=== PATIENT | male | born 1955 | race Hispanic/Latino ===

== ENCOUNTER → 2020-04-03 | Outpatient (CLI) | payer OTHER ==
[~2020-04-03] MED LIST: FURO20TA4 PO; HUMULOG SQ; INSLAN SQ; LEVO125T95 PO; LEVO150 PO; LEVO150T6 PO; METF-444 PO; ROSU20TA23 PO; SYNTHR; SYNTHROID PO; SYNTHROID SQ; TAMS-1 PO
== END | disposition home or self-care (01) ==
LOC: SHCH 12:53
PROVIDERS: ATTEND Internal Medicine Cardiovascular Disease
DX: E03.9 Hypothyroidism, unspecified (principal); E78.5 Hyperlipidemia, unspecified; I20.9 Angina pectoris, unspecified; I10 Essential (primary) hypertension
CPT/HCPCS: 93306; 93356

== ENCOUNTER → 2020-04-11 | Outpatient (CLI) | payer OTHER | END | disposition home or self-care (01) | LOC: RAH 08:47 | PROVIDERS: ATTEND Internal Medicine Cardiovascular Disease | DX: Z13.6 Encounter for screening for cardiovascular disorders (principal) | CPT/HCPCS: 75571 ==

== ENCOUNTER → 2020-04-24 | Outpatient (CLI) | payer OTHER ==
[~2020-04-24] MED LIST changes: -FURO20TA4 PO; -HUMULOG SQ; -INSLAN SQ; -LEVO125T95 PO; -LEVO150 PO; -LEVO150T6 PO; -METF-444 PO; +REGADENOSON 0.4 MG/5 ML PF SYG IVP SCH; -ROSU20TA23 PO; -SYNTHR; -SYNTHROID PO; -SYNTHROID SQ; -TAMS-1 PO
== END | disposition home or self-care (01) ==
LOC: SHCH 08:24
PROVIDERS: ATTEND Internal Medicine Cardiovascular Disease
DX: I25.119 Atherosclerotic heart disease of native coronary artery with unspecified angina pectoris (principal)
CPT/HCPCS: 78452; 93017; 96374; A9500 ×2; J2785

== ENCOUNTER 2020-05-11 05:53 | Day surgery (SDC) | payer OTHER ==
[2020-05-09 10:52] LABS: APPEARANCE,URINE Clear (CLEAR); BILIRUBIN,URINE Negative (NEGATIVE); COLOR,URINE Yellow (YELLOW); GLUCOSE, URINE (UA) >=1000 mg/dL (NEGATIVE); KETONES,URINE Negative (NEGATIVE); LEUKOCYTE ESTERASE ,URINE Negative (NEGATIVE); NITRATE,URINE Negative (NEGATIVE); OCCULT BLOOD,URINE Negative (NEGATIVE); PROTEIN,URINE Negative (NEGATIVE)
[2020-05-09 10:58] LABS: BASOPHILS % (AUTO) 0.7 % (0.0-5.0); EOSINOPHILS % (AUTO) 7.1 % (0.0-8.0); HEMATOCRIT 41.4 % (42-54); LYMPHOCYTES % (AUTO) 19.4 % (21.0-51.0); MEAN CORPUSCULAR HGB CONC 32.1 g/dL (32.0-36.0); MEAN CORPUSCULAR VOLUME 90.2 fL (79-99); MONOCYTES % (AUTO) 8.5 % (3.0-13.0); NEUTROPHILS % (AUTO) 63.8 % (40.0-77.0); PLATELET COUNT (AUTO) 279 K/uL (130-400); RED BLOOD CELL COUNT(AUTO) 4.59 MIL/uL (4.50-6.20); RED CELL DISTRIBUTION WIDTH 13.7 % (11.0-15.5); WHITE BLOOD COUNT (AUTO) 8.7 K/uL (4.8-10.8)
[2020-05-09 10:59] LABS: POTASSIUM 4.8 mmol/L (3.5-5.1)
[2020-05-09 11:11] LABS: BACTERIA,URINE None Seen /HPF (None Seen); HYALINE CASTS, URINE 0-1 /LPF (0-1 /LPF); RBC,URINE 0-1 /HPF (0-1); SQUAMOUS EPITHELIAL CELL,UR 0-2 /HPF (0-2); WBC,URINE 0-1 /HPF (0-1)
[2020-05-09 11:25] LABS: INR 0.95 (0.85-1.15); PARTIAL THROMBOPLASTIN TIME 27.5 SEC (26.3-35.5); PROTHROMBIN TIME 10.3 SEC (9.6-11.6)
[2020-05-10 15:10] VITALS: BP 143/70
[~2020-05-11] VITALS: Ht 170.2 cm; Wt 98.0 kg
[2020-05-11] VITALS (14 sets, daily range): BP systolic 107–141; BP diastolic 62–78
[~2020-05-11 05:53] MED LIST changes: +FURO20TA4 PO; +HUMULOG SQ; +INSLAN SQ; +METF-444 PO; -REGADENOSON 0.4 MG/5 ML PF SYG IVP SCH; +ROSU20TA23 PO; +SYNTHR; +SYNTHROID SQ; +TAMS-1 PO
[2020-05-11] MEDS ORDERED: SODIUM CHLORIDE 0.9% 1000ML 1,000 ML IV ONE (06:09)
[2020-05-11] MEDS ORDERED: LEVO150 PO (06:59)
[2020-05-11] MEDS ORDERED: SYNTHROID PO (07:04)
[2020-05-11] MEDS ORDERED: IOHEXOL-350 75 ML VIAL IV ONE ×2 (07:14→08:29)
[2020-05-11] MEDS ORDERED: HEPARIN SODIUM 1000UNIT/ML 10ML VIAL ONE (07:14)
[2020-05-11] MEDS ORDERED: LIDOCAINE HCL 2% 20ML ONE (07:14)
--- NOTE | 2020-05-11 07:20 | NUR ---
PROCEDURE PT TAKEN TO YARD ATTENDANT FOR SCHEDULED PROCEDURE. NO DISTRESS NOTED. SPOUSE AT BEDSIDE
[2020-05-11] MEDS ORDERED: LEVO125T95 PO (07:29)
[2020-05-11] MEDS ORDERED: NITROGLYCERIN 4.1 GM SPRAY TL ONE (07:57)
[2020-05-11] MEDS ORDERED: GLUCAGON 1MG KIT 1 MG ML IM PRN (08:30)
[2020-05-11] MEDS ORDERED: DEXTROSE 50%-WATER 50 ML DISP.SYRIN IV PRN (08:30)
[2020-05-11] MEDS ORDERED: SODIUM CHLORIDE 0.9% 10 ML VIAL IVP SCH (08:30)
--- NOTE | 2020-05-11 08:50 | NUR ---
post cath received pt and report from alex jeronimo rn. pt in supine position in no distress. pt aware not to bend or move rt leg and to apply pressure to rt groin with cough or sneeze. pt connected to monitor worker. will continue to monitor pt.
[2020-05-11] MEDS: INSULIN HUMULIN R 100 UNIT/ML 3ML SQ SCH ×2 (10:22→16:48)
--- NOTE | 2020-05-11 16:00 | NUR ---
REPORT REPORT GIVEN TO JENNIFER BROWNING RN FOR CONTINUATION OF CARE. PT IN NO DISTRESS WAITING FOR HEART SURGEON
--- NOTE | 2020-05-11 17:27 | NUR ---
PT SEEN BY DR WALLACE AT BEDSIDE - PT TO BE DISCHARGED HOME AND TO FOLLOW UP WITH DR WALLACE TO ARRANGE OUTPATIENT SURGERY FOR CABG
--- NOTE | 2020-05-11 18:15 | NUR ---
DISCHARGED HOME WITH . PRINTED AND VERBAL DISCHARGE INSTRUCTIONS GIVEN. BOTH VERBALIZE UNDERSTANDING. NO CHEST PAIN OR SOB. NO HEMATOMA TO RT GROIN-DSTAT DRESSING IN PLACE CLEAN DRY AND INTACT. TO CAR BVIS WHEELCHAIR. NO ACUTE DISTRESS. PT WILL FOLLOW UP WITH DR MCPHERSON OFFICE IN AM FOR APPT OFFICE IS CLOSED NOW. DR WALLACE TO SEE PT ON MAY 23 AT 1000 AM
== END 2020-05-11 18:15 | disposition home or self-care (01) ==
LOC: DAH 05:53
PROVIDERS: ATTEND Internal Medicine Cardiovascular Disease
DX: I25.119 Atherosclerotic heart disease of native coronary artery with unspecified angina pectoris (principal); I10 Essential (primary) hypertension; E78.00 Pure hypercholesterolemia, unspecified; Z79.84 Long term (current) use of oral hypoglycemic drugs; Z98.890 Other specified postprocedural states; Z79.01 Long term (current) use of anticoagulants; Z90.49 Acquired absence of other specified parts of digestive tract
CPT/HCPCS: 36415; 71045; 80048; 81001; 82948 ×3; 85025; 85610; 85730; 93005; 93458; A4215; A4216; A4221; A4222; A4223 ×3; A4606; A4663; C1887; C1894; J1644; J1815 ×2; J3490; J7030; Q9967 ×2

== ENCOUNTER 2020-05-29 17:44 | Emergency (ER) | payer OTHER ==
[~2020-05-29 17:44] MED LIST changes: +LEVO125T95 PO; -SYNTHR; -SYNTHROID SQ
== END 2020-05-29 18:10 | disposition left against medical advice (07) ==
LOC: EDH 17:44
DX: R51.9 Headache, unspecified (principal); I10 Essential (primary) hypertension; E11.9 Type 2 diabetes mellitus without complications; E78.00 Pure hypercholesterolemia, unspecified; Z53.21 Procedure and treatment not carried out due to patient leaving prior to being seen by health care provider

== ENCOUNTER 2020-06-02 11:00 | Inpatient (IN) | payer OTHER ==
[~2020-06-02] VITALS: Ht 172.7 cm; Wt 94.4 kg
[2020-06-02 09:52] LABS: BASOPHILS % (AUTO) 0.6 % (0.0-5.0); EOSINOPHILS % (AUTO) 3.3 % (0.0-8.0); HEMATOCRIT 43.7 % (42-54); LYMPHOCYTES % (AUTO) 16.3 % (21.0-51.0); MEAN CORPUSCULAR HEMOGLOBIN 29.2 pg (27.0-33.0); MEAN CORPUSCULAR HGB CONC 32.5 g/dL (32.0-36.0); MEAN CORPUSCULAR VOLUME 89.7 fL (79-99); MONOCYTES % (AUTO) 6.3 % (3.0-13.0); NEUTROPHILS % (AUTO) 73.1 % (40.0-77.0); PLATELET COUNT (AUTO) 313 K/uL (130-400); RED BLOOD CELL COUNT(AUTO) 4.87 MIL/uL (4.50-6.20); RED CELL DISTRIBUTION WIDTH 13.4 % (11.0-15.5); WHITE BLOOD COUNT (AUTO) 9.7 K/uL (4.8-10.8)
[2020-06-02 10:02] LABS: INR 1.01 (0.85-1.15); PARTIAL THROMBOPLASTIN TIME 27.6 SEC (26.3-35.5); PROTHROMBIN TIME 10.9 SEC (9.6-11.6)
[2020-06-02 10:11] LABS: HEMOGLOBIN A1C 8.7 % (4.0-6.0)
[2020-06-02 10:26] LABS: B-TYPE NATRIURETIC PEPTIDE 6 pg/mL (0-100)
[2020-06-02 10:36] LABS: BILIRUBIN,TOTAL 0.6 mg/dL (0.2-1.0); POTASSIUM 4.6 mmol/L (3.5-5.1); TOTAL PROTEIN, SERUM 8.3 g/dL (6.0-8.3)
[2020-06-05] MEDS ORDERED: ISOS30TA6 PO (09:56)
[2020-06-05] MEDS ORDERED: AEC81 PO (09:57)
[2020-06-05 09:59] VITALS: BP 135/76
[2020-06-06] VITALS (16 sets, daily range): BP systolic 85–153; BP diastolic 39–83
[2020-06-06] MEDS ORDERED: CEFUROXIME SODIUM 1.5 GM VIAL IVP SCH (06:00)
[2020-06-06] MEDS ORDERED: AMINOCAPROIC ACID 15,000 MG in SODIUM CHLORIDE 0.9% 500ML 420 ML IV PRN (06:30)
[2020-06-06] MEDS ORDERED: EPINEPHRINE 10 MG in SODIUM CHLORIDE 0.9% 240 ML IV PRN (06:30)
[2020-06-06] MEDS ORDERED: CEFAZOLIN SODIUM 1 GM VIAL ONE ×2 (06:47→07:03)
[2020-06-06] MEDS ORDERED: SODIUM CHLORIDE 0.9% 1000ML 1,000 ML IV ONE (06:48)
[2020-06-06] MEDS ORDERED: PAPAVERINE HCL 30 MG/ML 2ML VIAL ONE (07:04)
[2020-06-06] MEDS ORDERED: NITROGLYCERIN 50 MG/D5% WATER 1 BOT ONE (07:23)
[2020-06-06] MEDS ORDERED: ESMOLOL HCL 10 MG/ML 10 ML VIAL ONE (10:04)
[2020-06-06] MEDS ORDERED: PROTAMINE SULFATE 10 MG/ML 25ML VIAL IV ONE (10:04)
[2020-06-06] MEDS ORDERED: NOREPINEPHRINE BITARTRATE 1 MG/1 ML ML IV ONE (10:05)
[2020-06-06] MEDS ORDERED: LIDOCAINE PF 2% 5ML ABBOJECT ONE (10:05)
[2020-06-06] MEDS ORDERED: HEPARIN SODIUM 1000UNIT/ML 10ML VIAL ONE ×2 (10:05→11:09)
[2020-06-06] MEDS ORDERED: PROPOFOL 10 MG/ML 20ML VIAL IV ONE (10:05)
[2020-06-06] MEDS ORDERED: EPINEPHRINE 1 MG/ML AMPULE ONE (10:05)
[2020-06-06] MEDS ORDERED: FENTANYL CITRATE PF 50 MCG/1 ML 20ML VIAL IJ ONE (10:05)
[2020-06-06] MEDS ORDERED: AMINOCAPROIC ACID 250 MG/ML 20 ML VIAL ONE (10:05)
[2020-06-06] MEDS ORDERED: SODIUM BICARB 50MEQ 50ML VIAL 150 ML ONE (10:05)
[2020-06-06] MEDS ORDERED: ROCURONIUM 10MG/1ML SYR 10 MG/ML ML ONE (10:06)
[2020-06-06] MEDS ORDERED: MIDAZOLAM HCL 1 MG/ML 2ML VIAL ONE (10:06)
[2020-06-06] MEDS ORDERED: ETOMIDATE 2 MG/ML 10 ML VIAL ONE (10:07)
[2020-06-06] MEDS ORDERED: CEFAZOLIN SODIUM 1 GM VIAL IVP ONE (10:22)
[2020-06-06] MEDS ORDERED: CEFAZOLIN SODIUM 1 GM VIAL IRRIG ONE (10:40)
[2020-06-06 11:08] LABS: ABG BASE EXCESS -2.6 mmol/L (-2.0-3.0); ABG HCO3 23.8 mmol/L (21.0-28.0); ABG OXYGEN SATURATION 98.1 % (95.0-99.0); ABG PCO2 48 mmHg (35-48)
[2020-06-06 12:18] LABS: ABG BASE EXCESS -3.2 mmol/L (-2.0-3.0); ABG HCO3 22.7 mmol/L (21.0-28.0); ABG OXYGEN SATURATION 87.1 % (95.0-99.0); ABG PCO2 44 mmHg (35-48)
[2020-06-06 13:16] LABS: ABG BASE EXCESS -3.3 mmol/L (-2.0-3.0); ABG OXYGEN SATURATION 97.8 % (95.0-99.0); ABG PCO2 30 mmHg (35-48)
[2020-06-06] MEDS ORDERED: MORPHINE SULFATE 2 MG/ML 1ML SYG IV PRN ×2 (13:30→14:00)
[2020-06-06] MEDS ORDERED: SODIUM CHLORIDE 0.9% 10 ML VIAL IVP PRN (13:30)
[2020-06-06] MEDS ORDERED: ONDANSETRON HCL 4 MG/2 ML VIAL IV PRN (13:30)
[2020-06-06] MEDS ORDERED: SODIUM CHLORIDE 0.9% 250 ML IV PRN (13:30)
[2020-06-06] MEDS ORDERED: ACETAMINOPHEN 650 MG SUPPOSITORY RC PRN (13:30)
[2020-06-06] MEDS ORDERED: GLUCAGON 1MG KIT 1 MG ML IM PRN (13:30)
[2020-06-06] MEDS ORDERED: SODIUM CHLORIDE 0.9% 1000ML 1,000 ML IV SCH (13:30)
[2020-06-06] MEDS ORDERED: POTASSIUM PHOS 15 mMOL+NS250ML 250 ML IV PRN (13:30)
[2020-06-06] MEDS ORDERED: PROPOFOL 1000 MG/100 ML 100 ML IV PRN (13:30)
[2020-06-06] MEDS ORDERED: AMINOCAPROIC ACID 15,000 MG in SODIUM CHLORIDE 0.9% 250 ML IV SCH (13:30)
[2020-06-06] MEDS ORDERED: ALBUMIN (HUMAN) 5% 250 ML IV PRN (13:30)
[2020-06-06] MEDS ORDERED: EPINEPHRINE 2 MG in DEXTROSE 5%-WATER 250 ML IV PRN (13:30)
[2020-06-06] MEDS ORDERED: DEXTROSE 50%-WATER 50 ML DISP.SYRIN IV PRN (13:30)
[2020-06-06] MEDS ORDERED: NOREPINEPHRINE 4MG/NS 250ML 250 ML IV PRN (13:30)
[2020-06-06] MEDS ORDERED: NITROGLYCERIN 50 MG/D5% WATER 250 BOT IV SCH (13:30)
[2020-06-06] MEDS ORDERED: ALBUMIN (HUMAN) 5% 250 ML IV ONE ×2 (13:44→20:45)
[2020-06-06 14:05] LABS: ABG BASE EXCESS -2.4 mmol/L (-2.0-3.0); ABG HCO3 22.9 mmol/L (21.0-28.0); ABG OXYGEN SATURATION 96.9 % (95.0-99.0); ABG PCO2 41 mmHg (35-48)
[2020-06-06] MEDS: INSULIN REGULAR, HUMAN 3ML 100 UNIT in SODIUM CHLORIDE 0.9% 99 ML IV SCH ×2 (14:14)
[2020-06-06] MEDS: POTASSIUM CHLORIDE 20MEQ/100ML 100 ML IV PRN ×4 (14:19→20:50)
[2020-06-06] MEDS: SODIUM BICARB 50MEQ 50ML VIAL IV PRN ×2 (14:19→15:21)
[2020-06-06 14:21] LABS: HEMATOCRIT 28.1 % (42-54); MEAN CORPUSCULAR HEMOGLOBIN 29.7 pg (27.0-33.0); MEAN CORPUSCULAR HGB CONC 33.1 g/dL (32.0-36.0); MEAN CORPUSCULAR VOLUME 89.8 fL (79-99); RED BLOOD CELL COUNT(AUTO) 3.13 MIL/uL (4.50-6.20); RED CELL DISTRIBUTION WIDTH 13.5 % (11.0-15.5); WHITE BLOOD COUNT (AUTO) 24.5 K/uL (4.8-10.8)
[2020-06-06 14:34] LABS: CREATININE 0.8 mg/dL (0.5-1.5); PHOSPHORUS 3.6 mg/dL (2.5-4.9); POTASSIUM 3.1 mmol/L (3.5-5.1)
[2020-06-06 14:46] LABS: INR 1.18 (0.85-1.15); PARTIAL THROMBOPLASTIN TIME 24.7 SEC (26.3-35.5); PROTHROMBIN TIME 12.7 SEC (9.6-11.6)
[2020-06-06] MEDS: MAGNESIUM 2GM PREMIX 50ML 50 ML IV PRN ×2 (14:46→15:35)
[2020-06-06] MEDS: CALCIUM GLUCONATE 1 GM in SODIUM CHLORIDE 0.9% 50 ML IV PRN ×4 (14:57→23:57)
[2020-06-06 15:17] LABS: ABG BASE EXCESS -3.3 mmol/L (-2.0-3.0); ABG HCO3 22.2 mmol/L (21.0-28.0); ABG OXYGEN SATURATION 95.8 % (95.0-99.0); ABG PCO2 42 mmHg (35-48)
--- NOTE | 2020-06-06 15:31 | NUR ---
[facility] NOTIFIED OF PT ARRIVAL TO UNIT DR. MCCRAY'S OFFICE CALLED AND NOTIFIED OF CONSULT FOR LEFT GREAT TOE ULCER.
--- NOTE | 2020-06-06 16:00 | NUR ---
Liv LI, FREELANCE PATTERNMAKER AT BEDSIDE TO SEE PT. PLAN OF CARE DISCUSSED. PT AWAKE AND FOLLOWING COMMANDS, NO NEURO DEFICIT NOTED. WEANING FROM VENTILATOR PER CV PROTOCOL.
[2020-06-06 16:26] LABS: ABG BASE EXCESS -0.7 mmol/L (-2.0-3.0); ABG HCO3 25.3 mmol/L (21.0-28.0); ABG OXYGEN SATURATION 95.4 % (95.0-99.0); ABG PCO2 48 mmHg (35-48)
[2020-06-06 17:18] LABS: ABG BASE EXCESS 0.5 mmol/L (-2.0-3.0); ABG HCO3 25.9 mmol/L (21.0-28.0); ABG OXYGEN SATURATION 95.4 % (95.0-99.0); ABG PCO2 46 mmHg (35-48)
--- NOTE | 2020-06-06 17:25 | NUR ---
PT FULLY AWAKE, WITH STRONG BILATERAL HAND AGRICULTURAL AIRCRAFT PILOT AND ABLE TO SUSTAIN HEADLIFT. TOLERATING WEANING FROM VENT. WEANING PARAMETERS AND ABG COMPLETED ORDERED. PT WITH NIP -33. PT EXTUBATED PER CV PROTOCOL. PLACED ON NC 5 L. TOLERATED WELL. INSTRUCTED ON DEEP BREATHING AND COUGHING WELL IN USE OF HEART PILLOW. NODS UNDERSTANDING. NO RESP DISTRESS NOTED. PT RESTING COMFORTABLY IN BED. CONTINUE TO MONITOR PT.
[2020-06-06] MEDS: CEFAZOLIN SODIUM 1 GM VIAL IV SCH (17:42)
[2020-06-06 18:40] LABS: ABG BASE EXCESS -0.6 mmol/L (-2.0-3.0); ABG OXYGEN SATURATION 97.3 % (95.0-99.0); ABG PCO2 45 mmHg (35-48)
[2020-06-06] MEDS: TRAMADOL HCL 50 MG TABLET PO PRN (19:08)
[2020-06-06 20:46] LABS: ABG BASE EXCESS -0.3 mmol/L (-2.0-3.0); ABG HCO3 25.2 mmol/L (21.0-28.0); ABG OXYGEN SATURATION 95.8 % (95.0-99.0); ABG PCO2 46 mmHg (35-48)
[2020-06-06] MEDS: FAMOTIDINE/PF 20 MG/2 ML VIAL IV SCH (20:50)
[2020-06-06] MEDS: ROSUVASTATIN CALCIUM 20 MG PO SCH (21:00)
[2020-06-06] MEDS ORDERED: NON-FORMULARY MEDICATION 1 EACH (Rosuvastatin Calcium (Crestor) 20 MG) PO SCH (21:00)
[2020-06-06] MEDS: TAMSULOSIN HCL 0.4 MG CAP.ER.24H PO SCH (21:00)
[2020-06-06] MEDS: LEVOTHYROXINE 125 MCG TABLET PO SCH (21:00)
[2020-06-06] MEDS: NOREPINEPHRINE BITARTRATE 8 MG in DEXTROSE 5%-WATER 250 ML IV PRN (22:13)
[2020-06-06 23:38] LABS: POTASSIUM 4.4 mmol/L (3.5-5.1)
[2020-06-07] VITALS (58 sets, daily range): BP systolic 60–163; BP diastolic 28–79
[2020-06-07] MEDS: INSULIN REGULAR, HUMAN 3ML 100 UNIT in SODIUM CHLORIDE 0.9% 99 ML IV SCH ×2 (01:53)
[2020-06-07] MEDS: CEFAZOLIN SODIUM 1 GM VIAL IV SCH ×2 (01:59→10:28)
[2020-06-07] MEDS: TRAMADOL HCL 50 MG TABLET PO PRN ×2 (01:59→13:27)
[2020-06-07 03:35] LABS: HEMATOCRIT 24.5 % (42-54); MEAN CORPUSCULAR HEMOGLOBIN 29.5 pg (27.0-33.0); MEAN CORPUSCULAR HGB CONC 33.1 g/dL (32.0-36.0); MEAN CORPUSCULAR VOLUME 89.1 fL (79-99); RED BLOOD CELL COUNT(AUTO) 2.75 MIL/uL (4.50-6.20); RED CELL DISTRIBUTION WIDTH 13.7 % (11.0-15.5); WHITE BLOOD COUNT (AUTO) 17.6 K/uL (4.8-10.8)
[2020-06-07 03:48] LABS: CREATININE 0.9 mg/dL (0.5-1.5); MAGNESIUM 1.7 mg/dL (1.80-2.40); PHOSPHORUS 4.7 mg/dL (2.5-4.9); POTASSIUM 4.7 mmol/L (3.5-5.1)
[2020-06-07 03:49] LABS: INR 1.07 (0.85-1.15); PARTIAL THROMBOPLASTIN TIME 24.5 SEC (26.3-35.5); PROTHROMBIN TIME 11.5 SEC (9.6-11.6)
[2020-06-07] MEDS: MAGNESIUM 2GM PREMIX 50ML 50 ML IV PRN (04:00)
[2020-06-07 04:41] LABS: ABG BASE EXCESS 0.5 mmol/L (-2.0-3.0); ABG HCO3 26.1 mmol/L (21.0-28.0); ABG OXYGEN SATURATION 96.7 % (95.0-99.0); ABG PCO2 46 mmHg (35-48)
[2020-06-07] MEDS ORDERED: ALBUMIN (HUMAN) 5% 250 ML IV ONE (08:07)
--- NOTE | 2020-06-07 08:45 | NUR ---
DR. GILL ROUNDED ON PATIENT. ORDERED ONE UNIT OF BLOOD.
--- NOTE | 2020-06-07 08:45 | NUR ---
DR. GILL ROUNDED ON PATIENT. ORDERED ONE UNIT OF BLOOD.
[2020-06-07] MEDS: ASPIRIN 325MG EC TAB 325 MG TABLET.DR PO SCH (09:42)
[2020-06-07] MEDS: FAMOTIDINE/PF 20 MG/2 ML VIAL IV SCH ×2 (09:42→23:50)
[2020-06-07] MEDS: FUROSEMIDE 10 MG/ML 2ML VIAL IV SCH ×2 (09:43→23:50)
--- NOTE | 2020-06-07 11:21 | NUR ---
RUTHIE IVNA Spoke with daughter Anjana Zimmerman ([phone]). Ms Yeung statroly patient was independent with ADL's before this admission, and has no home services or DME. Daughter has some concerns about needing assistance with patient's care at home, as patient lives alone with . Ms Yeung lives out of town and will be leaving soon. Tentative discharge plan is for patient to go back home. Ms Yeung feels safe for patient to go home provided her mother gets assistance in taking care of patient. CM to follow up Addendum: 06/07/20 at 1127 by MIRA GRAHAM Amended: Links added.
[2020-06-07 12:05] LABS: ABG BASE EXCESS -2.1 mmol/L (-2.0-3.0); ABG HCO3 22.8 mmol/L (21.0-28.0); ABG OXYGEN SATURATION 95.2 % (95.0-99.0); ABG PCO2 40 mmHg (35-48)
--- NOTE | 2020-06-07 16:00 | NUR ---
DR. WALLACE UPDATED ON CXR. DR. FOWLER WAS CONSULTED. PATIENT WAS TAKEN TO CT PER DR. FOWLER'S ORDER. DR. FOWLER ATTEMPTED TO PUT IN CHEST TUBE AT 183 BUT WAS UNSUCCESSFUL BECAUSE PATIENT HAD TOO MUCH CLOTTING. DR. FOWLER UPDATED DR. WALLACE. DR. GILL THEN PROCEEDED TO PLACE A 36 [place] CHEST TUBE AT 2029. CXR WAS TAKEN AND DR. WALLACE WAS CALLED AT 2033 AND WAS UPDATED ON SPEAKER PHONE BY ME AND DR. GILL. DR. WALLACE ORDERED TO GET A CONSENT FOR MEDIASTINAL EXPLORATION AND TO CALL OR TEAM IN.
[2020-06-07 17:49] LABS: ABG BASE EXCESS 3.4 mmol/L (-2.0-3.0); ABG HCO3 27.7 mmol/L (21.0-28.0); ABG OXYGEN SATURATION 93.2 % (95.0-99.0); ABG PCO2 41 mmHg (35-48)
[2020-06-07 18:25] LABS: INR 1.1 (0.85-1.15); PARTIAL THROMBOPLASTIN TIME 26.1 SEC (26.3-35.5); PROTHROMBIN TIME 11.8 SEC (9.6-11.6)
[2020-06-07] MEDS ORDERED: PHARMACY COMMUNICATION MISC SCH (19:30)
[2020-06-07] MEDS ORDERED: LIDOCAINE HCL 1% 20 ML VIAL ONE ×3 (19:37→20:14)
[2020-06-07] MEDS ORDERED: SODIUM CHLORIDE 0.9% 500ML 500 ML IV ONE (19:44)
[2020-06-07] MEDS: ROSUVASTATIN CALCIUM 20 MG PO SCH (21:00)
[2020-06-07] MEDS: LEVOTHYROXINE 125 MCG TABLET PO SCH (21:00)
[2020-06-07] MEDS: TAMSULOSIN HCL 0.4 MG CAP.ER.24H PO SCH (21:00)
[2020-06-07] MEDS ORDERED: DEXAMETHASONE SOD PHOSPHATE 10MG/ML 1ML VIAL ONE (21:27)
[2020-06-07] MEDS ORDERED: FENTANYL CITRATE PF 50 MCG/1 ML 2ML VIAL ONE (21:27)
[2020-06-07] MEDS ORDERED: SUCCINYLCHOLINE CHLORIDE 20 MG/ML 10 ML VIAL ONE ×2 (21:27→21:28)
[2020-06-07] MEDS ORDERED: PROPOFOL 10 MG/ML 20ML VIAL IV ONE (21:27)
[2020-06-07] MEDS ORDERED: GLYCOPYRROLATE 1 MG/5 ML SYRINGE ONE (21:27)
[2020-06-07] MEDS ORDERED: ROCURONIUM 10MG/1ML SYR 10 MG/ML ML ONE (21:27)
[2020-06-07] MEDS ORDERED: LIDOCAINE PF 2% 5ML ABBOJECT ONE ×2 (21:27→21:28)
[2020-06-07] MEDS ORDERED: NEOSTIGMINE 5MG/5ML SYR IV ONE (21:27)
[2020-06-07] MEDS ORDERED: ONDANSETRON HCL 4 MG/2 ML VIAL ONE (21:27)
[2020-06-07] MEDS ORDERED: ETOMIDATE 2 MG/ML 10 ML VIAL ONE (21:28)
--- NOTE | 2020-06-07 21:30 | NUR ---
OR PT TAKEN TO OR AT THIS TIME BY OR TEAM. ATTEMPTED TO CALL SPOUSE AND PHONE GOES DIRECTLY TO VOICE MAIL MESSAGE WAS LEFT TO CALL BACK.
[2020-06-07] MEDS ORDERED: SODIUM BICARB 50MEQ 50ML VIAL 200 ML ONE (21:38)
[2020-06-07] MEDS ORDERED: CEFAZOLIN SODIUM 1 GM VIAL ONE ×3 (21:59→22:00)
[2020-06-07] MEDS ORDERED: HEPARIN SODIUM 1000UNIT/ML 10ML VIAL ONE (22:12)
[2020-06-07 22:13] LABS: ABG BASE EXCESS -0.9 mmol/L (-2.0-3.0); ABG HCO3 23.7 mmol/L (21.0-28.0); ABG OXYGEN SATURATION 97.9 % (95.0-99.0); ABG PCO2 39 mmHg (35-48)
[2020-06-07] MEDS ORDERED: FENTANYL CITRATE PF 50 MCG/1 ML 5ML AMP IV ONE ×2 (22:35)
[2020-06-07] MEDS ORDERED: MEPERIDINE-PF 25 MG/ML SYG ONE (22:40)
[2020-06-07] MEDS ORDERED: LABETALOL HCL 5 MG/ML 20ML VIAL IV ONE (22:47)
--- NOTE | 2020-06-07 23:17 | NUR ---
OR PT RECEIVED AT THIS TIME FROM OR. PT INTUBATED ON MECHANICAL VENTILATION VIA ET TUBE 7.5 TAPPED AT APPROXIMATELY 23 CM LIP. VENT SETTINGS SIMV RATE 12/ VT 600, PEEP 5, PS 10, FIO2 40%. BILATERAL BREATH SOUNDS AUSCULTATE DIMINISHED ON LEFT SIDE. SEE ASSESSMENT
[2020-06-08] VITALS (40 sets, daily range): BP systolic 11–164; BP diastolic 38–111
[2020-06-08 00:04] LABS: BASOPHILS % (AUTO) 0.3 % (0.0-5.0); EOSINOPHILS % (AUTO) 0.2 % (0.0-8.0); HEMATOCRIT 24.4 % (42-54); LYMPHOCYTES % (AUTO) 7.8 % (21.0-51.0); MEAN CORPUSCULAR HEMOGLOBIN 30.3 pg (27.0-33.0); MEAN CORPUSCULAR HGB CONC 34.4 g/dL (32.0-36.0); MEAN CORPUSCULAR VOLUME 88.1 fL (79-99); MONOCYTES % (AUTO) 8.6 % (3.0-13.0); NEUTROPHILS % (AUTO) 82.5 % (40.0-77.0); PLATELET COUNT (AUTO) 155 K/uL (130-400); RED BLOOD CELL COUNT(AUTO) 2.77 MIL/uL (4.50-6.20); RED CELL DISTRIBUTION WIDTH 14.1 % (11.0-15.5); WHITE BLOOD COUNT (AUTO) 18.1 K/uL (4.8-10.8)
[2020-06-08 00:17] LABS: CREATININE 0.8 mg/dL (0.5-1.5); POTASSIUM 4.2 mmol/L (3.5-5.1)
[2020-06-08 00:20] LABS: MAGNESIUM 1.3 mg/dL (1.80-2.40); PHOSPHORUS 3.5 mg/dL (2.5-4.9)
[2020-06-08 00:27] LABS: INR 1.12 (0.85-1.15); PARTIAL THROMBOPLASTIN TIME 25.4 SEC (26.3-35.5)
[2020-06-08 00:39] LABS: ABG BASE EXCESS -0.4 mmol/L (-2.0-3.0); ABG HCO3 25.1 mmol/L (21.0-28.0); ABG PCO2 45 mmHg (35-48)
[2020-06-08] MEDS: SODIUM BICARB 50MEQ 50ML VIAL IV PRN (00:52)
[2020-06-08] MEDS: MAGNESIUM 2GM PREMIX 50ML 50 ML IV PRN (00:59)
[2020-06-08] MEDS ORDERED: CALCIUM GLUCONATE 1 GM/10 ML VIAL IV ONE (01:01)
[2020-06-08] MEDS: CALCIUM GLUCONATE 1 GM in SODIUM CHLORIDE 0.9% 50 ML IV PRN (01:11)
[2020-06-08] MEDS: NOREPINEPHRINE BITARTRATE 8 MG in DEXTROSE 5%-WATER 250 ML IV PRN (01:58)
[2020-06-08 02:11] LABS: ABG BASE EXCESS 0.9 mmol/L (-2.0-3.0); ABG HCO3 26.2 mmol/L (21.0-28.0); ABG OXYGEN SATURATION 96.6 % (95.0-99.0); ABG PCO2 45 mmHg (35-48)
[2020-06-08] MEDS: INSULIN REGULAR, HUMAN 3ML 100 UNIT in SODIUM CHLORIDE 0.9% 99 ML IV SCH ×2 (02:40)
[2020-06-08 04:40] LABS: ABG BASE EXCESS 2.2 mmol/L (-2.0-3.0); ABG HCO3 26.7 mmol/L (21.0-28.0); ABG OXYGEN SATURATION 96.8 % (95.0-99.0); ABG PCO2 41 mmHg (35-48)
[2020-06-08 05:05] LABS: HEMATOCRIT 25.8 % (42-54); MEAN CORPUSCULAR HEMOGLOBIN 29.6 pg (27.0-33.0); MEAN CORPUSCULAR HGB CONC 34.1 g/dL (32.0-36.0); MEAN CORPUSCULAR VOLUME 86.9 fL (79-99); RED BLOOD CELL COUNT(AUTO) 2.97 MIL/uL (4.50-6.20); RED CELL DISTRIBUTION WIDTH 14.3 % (11.0-15.5); WHITE BLOOD COUNT (AUTO) 19.1 K/uL (4.8-10.8)
[2020-06-08 05:22] LABS: CREATININE 0.9 mg/dL (0.5-1.5); MAGNESIUM 2.1 mg/dL (1.80-2.40); PHOSPHORUS 2.2 mg/dL (2.5-4.9); POTASSIUM 4.1 mmol/L (3.5-5.1)
[2020-06-08] MEDS ORDERED: PHARMACY COMMUNICATION MISC SCH (05:30)
[2020-06-08 06:22] LABS: ABG BASE EXCESS 3.8 mmol/L (-2.0-3.0); ABG HCO3 28.9 mmol/L (21.0-28.0); ABG OXYGEN SATURATION 95.9 % (95.0-99.0); ABG PCO2 45 mmHg (35-48)
[2020-06-08] MEDS: FUROSEMIDE 20 MG TABLET PO SCH ×2 (08:48→14:51)
[2020-06-08] MEDS: ASPIRIN 325MG EC TAB 325 MG TABLET.DR PO SCH (08:48)
[2020-06-08] MEDS: FAMOTIDINE/PF 20 MG/2 ML VIAL IV SCH ×2 (08:48→20:15)
[2020-06-08] MEDS: METOPROLOL TARTRATE 25 MG TAB PO SCH ×2 (08:49→19:18)
[2020-06-08] MEDS: FUROSEMIDE 10 MG/ML 2ML VIAL IV SCH (13:24)
[2020-06-08] MEDS: TRAMADOL HCL 50 MG TABLET PO PRN (14:50)
[2020-06-08] MEDS: ROSUVASTATIN CALCIUM 20 MG PO SCH (19:59)
[2020-06-08] MEDS: LEVOTHYROXINE 125 MCG TABLET PO SCH (20:15)
[2020-06-08] MEDS: TAMSULOSIN HCL 0.4 MG CAP.ER.24H PO SCH (20:15)
[2020-06-08] MEDS: ACETAMINOPHEN 325 MG TAB PO PRN (20:16)
[2020-06-08] MEDS: INSULIN HUMULIN R 100 UNIT/ML 3ML SQ SCH (21:12)
[2020-06-09] VITALS (21 sets, daily range): BP systolic 94–132; BP diastolic 40–71
[2020-06-09] MEDS: FUROSEMIDE 10 MG/ML 2ML VIAL IV SCH
[2020-06-09] MEDS: ACETAMINOPHEN 325 MG TAB PO PRN (00:32)
[2020-06-09] MEDS: TRAMADOL HCL 50 MG TABLET PO PRN (04:30)
[2020-06-09 04:46] LABS: HEMATOCRIT 24.6 % (42-54); MEAN CORPUSCULAR HEMOGLOBIN 30.2 pg (27.0-33.0); MEAN CORPUSCULAR HGB CONC 34.1 g/dL (32.0-36.0); MEAN CORPUSCULAR VOLUME 88.5 fL (79-99); RED BLOOD CELL COUNT(AUTO) 2.78 MIL/uL (4.50-6.20); RED CELL DISTRIBUTION WIDTH 14.2 % (11.0-15.5); WHITE BLOOD COUNT (AUTO) 14.6 K/uL (4.8-10.8)
[2020-06-09 05:26] LABS: CREATININE 0.9 mg/dL (0.5-1.5); POTASSIUM 4.3 mmol/L (3.5-5.1)
[2020-06-09] MEDS: INSULIN HUMULIN R 100 UNIT/ML 3ML SQ SCH ×4 (06:39→20:51)
[2020-06-09] MEDS: ENOXAPARIN SODIUM 30 MG/0.3 ML SQ SCH (09:00)
[2020-06-09] MEDS: METOPROLOL TARTRATE 25 MG TAB PO SCH ×2 (09:00→22:02)
[2020-06-09] MEDS: ASPIRIN 325MG EC TAB 325 MG TABLET.DR PO SCH (11:23)
[2020-06-09] MEDS: FUROSEMIDE 20 MG TABLET PO SCH ×2 (11:24→16:59)
[2020-06-09] MEDS: ATORVASTATIN CALCIUM 40 MG TABLET PO SCH (11:24)
[2020-06-09] MEDS: ROSUVASTATIN CALCIUM 20 MG PO SCH (21:00)
[2020-06-09] MEDS: TAMSULOSIN HCL 0.4 MG CAP.ER.24H PO SCH (22:00)
[2020-06-09] MEDS: LEVOTHYROXINE 125 MCG TABLET PO SCH (22:00)
[2020-06-09] MEDS: FAMOTIDINE 20MG TAB 20 MG TAB PO SCH (22:00)
[2020-06-10] VITALS (16 sets, daily range): BP systolic 91–149; BP diastolic 46–95
[2020-06-10 06:22] LABS: BASOPHILS % (AUTO) 0.3 % (0.0-5.0); EOSINOPHILS % (AUTO) 4.2 % (0.0-8.0); HEMATOCRIT 28.6 % (42-54); LYMPHOCYTES % (AUTO) 8.5 % (21.0-51.0); MEAN CORPUSCULAR HEMOGLOBIN 29.8 pg (27.0-33.0); MEAN CORPUSCULAR HGB CONC 33.9 g/dL (32.0-36.0); MEAN CORPUSCULAR VOLUME 87.7 fL (79-99); MONOCYTES % (AUTO) 6.6 % (3.0-13.0); NEUTROPHILS % (AUTO) 79.8 % (40.0-77.0); PLATELET COUNT (AUTO) 178 K/uL (130-400); RED BLOOD CELL COUNT(AUTO) 3.26 MIL/uL (4.50-6.20); RED CELL DISTRIBUTION WIDTH 13.8 % (11.0-15.5); WHITE BLOOD COUNT (AUTO) 11.5 K/uL (4.8-10.8)
[2020-06-10 06:41] LABS: ALBUMIN 2.3 g/dL (3.5-5.0); BILIRUBIN,TOTAL 1.1 mg/dL (0.2-1.0); CREATININE 0.8 mg/dL (0.5-1.5); MAGNESIUM 1.8 mg/dL (1.80-2.40); PHOSPHORUS 2.3 mg/dL (2.5-4.9); POTASSIUM 4.3 mmol/L (3.5-5.1); TOTAL PROTEIN, SERUM 5.7 g/dL (6.0-8.3)
[2020-06-10] MEDS: INSULIN HUMULIN R 100 UNIT/ML 3ML SQ SCH ×4 (07:30→20:58)
[2020-06-10] MEDS: METOPROLOL TARTRATE 25 MG TAB PO SCH ×2 (09:00→19:57)
[2020-06-10] MEDS: FAMOTIDINE 20MG TAB 20 MG TAB PO SCH ×2 (09:00→19:58)
[2020-06-10] MEDS: FUROSEMIDE 20 MG TABLET PO SCH ×2 (12:13→16:39)
[2020-06-10] MEDS: ATORVASTATIN CALCIUM 40 MG TABLET PO SCH (12:14)
[2020-06-10] MEDS: ASPIRIN 325MG EC TAB 325 MG TABLET.DR PO SCH (12:14)
[2020-06-10] MEDS: ENOXAPARIN SODIUM 30 MG/0.3 ML SQ SCH (12:17)
--- NOTE | 2020-06-10 12:30 | NUR ---
PT S/P CHEST TUBE REMOVAL. BEDREST X 2 HRS Addendum: 06/10/20 at 1339 by REYES POLLARD PT Amended: Links added.
--- NOTE | 2020-06-10 18:53 | NUR ---
BLADDER SCAN REVEALS 645ML OF FLUID, DR GILL UPDATED, ORDERS RECEIVED FOR GASCA RE-INSERTION
[2020-06-10] MEDS: LEVOTHYROXINE 125 MCG TABLET PO SCH (19:58)
[2020-06-10] MEDS: TAMSULOSIN HCL 0.4 MG CAP.ER.24H PO SCH (19:58)
[2020-06-10] MEDS: ROSUVASTATIN CALCIUM 20 MG PO SCH (19:58)
[2020-06-10] MEDS: TRAMADOL HCL 50 MG TABLET PO PRN (19:59)
[2020-06-11] MEDS: TRAMADOL HCL 50 MG TABLET PO PRN ×4 (02:03→22:23)
[2020-06-11 04:00] VITALS: BP 105/64
[2020-06-11 05:58] LABS: BASOPHILS % (AUTO) 0.3 % (0.0-5.0); EOSINOPHILS % (AUTO) 5.3 % (0.0-8.0); HEMATOCRIT 27.7 % (42-54); LYMPHOCYTES % (AUTO) 10.1 % (21.0-51.0); MEAN CORPUSCULAR HEMOGLOBIN 29.9 pg (27.0-33.0); MEAN CORPUSCULAR HGB CONC 33.9 g/dL (32.0-36.0); MEAN CORPUSCULAR VOLUME 88.2 fL (79-99); MONOCYTES % (AUTO) 8.9 % (3.0-13.0); NEUTROPHILS % (AUTO) 74.6 % (40.0-77.0); PLATELET COUNT (AUTO) 223 K/uL (130-400); RED BLOOD CELL COUNT(AUTO) 3.14 MIL/uL (4.50-6.20); RED CELL DISTRIBUTION WIDTH 13.3 % (11.0-15.5); WHITE BLOOD COUNT (AUTO) 11.2 K/uL (4.8-10.8)
[2020-06-11] MEDS: INSULIN HUMULIN R 100 UNIT/ML 3ML SQ SCH ×4 (06:18→20:28)
[2020-06-11 06:24] LABS: ALBUMIN 2.1 g/dL (3.5-5.0); BILIRUBIN,TOTAL 0.7 mg/dL (0.2-1.0); CREATININE 0.8 mg/dL (0.5-1.5); MAGNESIUM 1.7 mg/dL (1.80-2.40); PHOSPHORUS 2.4 mg/dL (2.5-4.9); POTASSIUM 3.8 mmol/L (3.5-5.1); TOTAL PROTEIN, SERUM 5.5 g/dL (6.0-8.3)
[2020-06-11 07:56] VITALS: BP 101/53
[2020-06-11] MEDS: ASPIRIN 325MG EC TAB 325 MG TABLET.DR PO SCH (08:14)
[2020-06-11] MEDS: METOPROLOL TARTRATE 25 MG TAB PO SCH ×2 (08:15→20:25)
[2020-06-11] MEDS: FAMOTIDINE 20MG TAB 20 MG TAB PO SCH ×2 (08:15→20:25)
[2020-06-11] MEDS: ATORVASTATIN CALCIUM 40 MG TABLET PO SCH (08:15)
[2020-06-11] MEDS: FUROSEMIDE 20 MG TABLET PO SCH ×2 (08:15→16:21)
[2020-06-11] MEDS: ENOXAPARIN SODIUM 30 MG/0.3 ML SQ SCH (08:17)
--- NOTE | 2020-06-11 11:21 | NUR ---
B/P 90/50 Patient asleep on recliner, arousable, AAX3 in no apparent distress or discomfort. Verbalizes no headache, dizziness, or fatigue. Will continue to monitor patient. Call light within reach.
[2020-06-11 11:28] VITALS: BP 90/50
[2020-06-11] MEDS: MAGNESIUM 2GM PREMIX 50ML 50 ML IV PRN (11:57)
[2020-06-11 16:00] VITALS: BP 100/54
[2020-06-11 18:54] VITALS: BP 114/67
[2020-06-11] MEDS: LEVOTHYROXINE 125 MCG TABLET PO SCH (20:25)
[2020-06-11] MEDS: TAMSULOSIN HCL 0.4 MG CAP.ER.24H PO SCH (20:25)
[2020-06-11] MEDS: ROSUVASTATIN CALCIUM 20 MG PO SCH (21:00)
[2020-06-11 23:07] VITALS: BP 107/62
[2020-06-12 03:39] VITALS: BP 125/67
[2020-06-12] MEDS: TRAMADOL HCL 50 MG TABLET PO PRN (05:49)
[2020-06-12] MEDS: INSULIN HUMULIN R 100 UNIT/ML 3ML SQ SCH ×4 (06:30→21:53)
[2020-06-12 08:00] VITALS: BP 143/83
[2020-06-12] MEDS: FUROSEMIDE 20 MG TABLET PO SCH ×2 (09:01→17:04)
[2020-06-12] MEDS: ASPIRIN 325MG EC TAB 325 MG TABLET.DR PO SCH (09:01)
[2020-06-12] MEDS: ATORVASTATIN CALCIUM 40 MG TABLET PO SCH (09:01)
[2020-06-12] MEDS: FAMOTIDINE 20MG TAB 20 MG TAB PO SCH ×2 (09:01→20:32)
[2020-06-12] MEDS: METOPROLOL TARTRATE 25 MG TAB PO SCH ×2 (09:02→20:32)
[2020-06-12] MEDS: ENOXAPARIN SODIUM 30 MG/0.3 ML SQ SCH (09:03)
[2020-06-12 12:00] VITALS: BP 102/62
[2020-06-12 16:00] VITALS: BP 133/74
[2020-06-12 19:49] VITALS: BP 139/73
[2020-06-12] MEDS: LEVOTHYROXINE 125 MCG TABLET PO SCH (20:31)
[2020-06-12] MEDS: TAMSULOSIN HCL 0.4 MG CAP.ER.24H PO SCH (20:32)
[2020-06-12] MEDS: ROSUVASTATIN CALCIUM 20 MG PO SCH (20:33)
[2020-06-12] MEDS ORDERED: BISACODYL 10 MG SUPP.RECT RC ONE ×2 (22:00→22:36)
[2020-06-12] MEDS: POLYETHYLENE GLYCOL 3350 17 GM POWD.PACK PO SCH (22:00)
--- NOTE | 2020-06-12 22:00 | NUR ---
ORDERS PATIENT STATED HE HAS NOT HAD A BM FOR 4 DAYS. CABG DAY 6. PER HAKEEM MCCRAY ADMINISTER A DULCOLAX SUPP X1, GIVE MIRALAX NOW, AND MIRALAX ORDERED DAILY. GIVE A FLEETS ENEMA IF NO BM DURING THE NIGHT
[2020-06-12] MEDS ORDERED: POLYETHYLENE GLYCOL 3350 17 GM POWD.PACK ONE (22:36)
--- NOTE | 2020-06-12 23:00 | NUR ---
PATIENT HAD A BM
[2020-06-12 23:42] VITALS: BP 123/72
[2020-06-13] MEDS: TRAMADOL HCL 50 MG TABLET PO PRN ×3 (03:16→20:40)
[2020-06-13 03:59] VITALS: BP 134/76
--- NOTE | 2020-06-13 04:17 | NUR ---
BM X3 DURING THE NIGHT
--- NOTE | 2020-06-13 04:19 | NUR ---
PATIENT A/OX3. DENIES CHEST PAIN. NO SOB AT REST. GASCA IN PLACE WITH CBI. PATIENT DID C/O OF DISCOMFORT AT SHIFT CHANGE. GASCA CHECKED AND FLUSHED WITH 50 CC. SEVERAL BLOOD CLOTS IN GASCA AFTER FLUSH. GASCA BEGAN TO DRAIN PINK TINGED URINE AFTER FLUSH. PATIENT STATED RELIEF. MIDSTERNAL DRESSING IN PLACE. HARVEST SITES WITHOUT REDNESS. DRESSING TO LEFT FOOT. DRESSING CHANGES DONE BY MAHENDRA. WILL CONTINUE TO MONITOR OUTPUT.
[2020-06-13] MEDS: INSULIN HUMULIN R 100 UNIT/ML 3ML SQ SCH ×4 (05:36→20:46)
[2020-06-13] MEDS: FAMOTIDINE 20MG TAB 20 MG TAB PO SCH ×2 (07:14→20:40)
[2020-06-13] MEDS: POLYETHYLENE GLYCOL 3350 17 GM POWD.PACK PO SCH ×2 (07:14→19:42)
[2020-06-13] MEDS: METOPROLOL TARTRATE 25 MG TAB PO SCH ×2 (07:14→20:40)
[2020-06-13] MEDS: ATORVASTATIN CALCIUM 40 MG TABLET PO SCH (07:14)
[2020-06-13] MEDS: FUROSEMIDE 20 MG TABLET PO SCH ×2 (07:14→16:22)
[2020-06-13] MEDS: ENOXAPARIN SODIUM 30 MG/0.3 ML SQ SCH (07:15)
--- NOTE | 2020-06-13 08:00 | NUR ---
ASSESSMENT PT IS AAOX3 DENIES CP DENIES SOB DENIES NV. NO COMPLAINTS AT THIS TIME. SITTING UPRIGHT IN BED. STERNAL INCISION WITH DRESSING IN PLACE, CLEAN DRY AND INTACT. ENCOURAGED USE OF IS 10XS Q1HR WHILE AWAKE. ENCOURAGED USE OF PILLOW SPLINTING WHILE COUGH AND DEEP BREATHING. NOTED LEFT GREAT TOE AND 2ND TOE WITH DRESSING IN PLACE, CLEAN DRY AND INTACT. DR MCCRAY DOES HIS DRESSINGS. CALL LIGHT WITHIN REACH.
[2020-06-13 08:30] VITALS: BP 123/73
[2020-06-13] MEDS: ASPIRIN 81MG TAB.CHEW PO SCH (09:06)
--- NOTE | 2020-06-13 11:00 | NUR ---
IRMA COLON AWARE OF DR ALVARADO REQUESTING DR HARTMANN TO SEE PATIENT I ALSO TOLD IRMA THAT DR ALVARADO SAID HE WOULD NOTIFY DR HARTMANN HIMSELF
[2020-06-13 12:13] VITALS: BP 119/63
--- NOTE | 2020-06-13 12:42 | NUR ---
DR DIANA ROUNDED ORDERS RECEIVED TO STOP CBI. CBI STOPPED. PLUG PLACED AND SECURED TO CBI PORT OF GASCA.
--- NOTE | 2020-06-13 12:49 | NUR ---
CALL TO DR. SAENZ'S OFFICE T/C PLACED TO DR. SAENZ'S OFFICE, SPOKE WITH MEEK TO INFORM THAT PHYSICIAN DID NOT COME YESTERDAY. STATES CHECKED CONSULTS AND INFO. HAS BEEN TAKEN BY PHYSICIAN. PENDING FOR PHYSICIAN TO COME.
--- NOTE | 2020-06-13 14:39 | NUR ---
DR SAENZ CALLED BACK NO FURTHER ORDERS. OK TO GO HOME WITH ELO WHEN READY FOR DISCHARGE BY PRIMARY TEAM. OK TO BE SEEN IN OFFICE WHEN DISCHARGED FOR FOLLOW UP OF ELO.
[2020-06-13 16:30] VITALS: BP 147/81
--- NOTE | 2020-06-13 17:51 | NUR ---
STATUS RESTING IN BED, FAMILY IS AT BEDSIDE.
[2020-06-13 20:07] VITALS: BP 142/76
[2020-06-13] MEDS: TAMSULOSIN HCL 0.4 MG CAP.ER.24H PO SCH (20:40)
[2020-06-13] MEDS: ROSUVASTATIN CALCIUM 20 MG PO SCH (20:40)
[2020-06-13] MEDS: LEVOTHYROXINE 125 MCG TABLET PO SCH (20:40)
[2020-06-13 23:58] VITALS: BP 129/70
[2020-06-14 04:02] VITALS: BP 129/76
[2020-06-14] MEDS: INSULIN HUMULIN R 100 UNIT/ML 3ML SQ SCH ×4 (05:58→20:01)
[2020-06-14 06:00] LABS: HEMATOCRIT 28.9 % (42-54); MEAN CORPUSCULAR HEMOGLOBIN 29.5 pg (27.0-33.0); MEAN CORPUSCULAR HGB CONC 33.2 g/dL (32.0-36.0); MEAN CORPUSCULAR VOLUME 88.9 fL (79-99); RED BLOOD CELL COUNT(AUTO) 3.25 MIL/uL (4.50-6.20); RED CELL DISTRIBUTION WIDTH 13.2 % (11.0-15.5); WHITE BLOOD COUNT (AUTO) 11.9 K/uL (4.8-10.8)
[2020-06-14 06:13] LABS: CREATININE 0.8 mg/dL (0.5-1.5); POTASSIUM 3.4 mmol/L (3.5-5.1)
[2020-06-14 07:54] VITALS: BP 101/62
--- NOTE | 2020-06-14 08:15 | NUR ---
AM ASSESSMENT PT LAYING IN BED, RESTING. A/O X 3. NO SOB. NO DISTRESS NOTED. DENIES CHEST PAIN OR DISCOMFORT. DENIES PALPITATIONS. DENIES INCISIONAL PAIN. TELE: SR. STERNAL INCISION DSG REMOVED @ THIS TIME. INCISION WELL APPROX, NO DRAINAGE NOTED. DENIES N/V AND/OR DIARRHEA. FC PATENT & DRAINING. FC CATHETER DC'D @ THIS TIME. CATHETER TIP INTACT. NO RESISTANCE @ WITHDRAWAL. PT INFORMED TO NOTIFY STAF OF 1st VOID POST CATHETER REMOVAL. URINAL @ BEDSIDE. IS 1200 ML. PURPOSE OF IS REINFORCED. STERNAL PRECAUTIONS REINFORCED. LT GREAT TO DSG DRY & INTACT. NO DRAINAGE NOTED. DSG CHANGE DONE DAILY BY DR MCCRAY. UP W/ASSISTANCE. INSTRUCTED TO CALL FOR ASSISTANCE. CALL GEORGIE W/IN REACH.
[2020-06-14] MEDS: FUROSEMIDE 20 MG TABLET PO SCH ×2 (08:24→16:33)
[2020-06-14] MEDS: ASPIRIN 81MG TAB.CHEW PO SCH (08:25)
[2020-06-14] MEDS: ATORVASTATIN CALCIUM 40 MG TABLET PO SCH (08:25)
[2020-06-14] MEDS: POLYETHYLENE GLYCOL 3350 17 GM POWD.PACK PO SCH ×2 (08:25→20:00)
[2020-06-14] MEDS: FAMOTIDINE 20MG TAB 20 MG TAB PO SCH ×2 (08:25→20:49)
[2020-06-14] MEDS: ENOXAPARIN SODIUM 30 MG/0.3 ML SQ SCH (08:25)
[2020-06-14] MEDS: METOPROLOL TARTRATE 25 MG TAB PO SCH ×2 (08:25→20:49)
[2020-06-14] MEDS ORDERED: POTASSIUM CHLORIDE 20 MEQ ERTAB PO PRN (08:30)
[2020-06-14] MEDS: POTASSIUM CHLORIDE 10% ELIXIR 20 MEQ/15 ML UDCUP PO PRN ×2 (08:43→11:26)
[2020-06-14 11:56] VITALS: BP 134/78
[2020-06-14 16:00] VITALS: BP 124/77
[2020-06-14] MEDS: ROSUVASTATIN CALCIUM 20 MG PO SCH (19:59)
[2020-06-14 20:00] VITALS: BP 136/80
[2020-06-14] MEDS: LEVOTHYROXINE 125 MCG TABLET PO SCH (20:48)
[2020-06-14] MEDS: TAMSULOSIN HCL 0.4 MG CAP.ER.24H PO SCH (20:49)
[2020-06-14 23:40] VITALS: BP 117/63
[2020-06-15 03:30] VITALS: BP 133/80
[2020-06-15] MEDS: INSULIN HUMULIN R 100 UNIT/ML 3ML SQ SCH ×4 (06:56→21:40)
[2020-06-15 07:58] VITALS: BP 118/70
[2020-06-15] MEDS: ATORVASTATIN CALCIUM 40 MG TABLET PO SCH (08:58)
[2020-06-15] MEDS: FUROSEMIDE 20 MG TABLET PO SCH ×2 (08:59→17:00)
[2020-06-15] MEDS: ASPIRIN 81MG TAB.CHEW PO SCH (09:00)
[2020-06-15] MEDS: FAMOTIDINE 20MG TAB 20 MG TAB PO SCH ×2 (09:00→21:39)
[2020-06-15] MEDS: METOPROLOL TARTRATE 25 MG TAB PO SCH ×2 (09:00→21:39)
[2020-06-15] MEDS: POLYETHYLENE GLYCOL 3350 17 GM POWD.PACK PO SCH ×2 (09:00→20:05)
[2020-06-15] MEDS: ENOXAPARIN SODIUM 30 MG/0.3 ML SQ SCH (09:01)
[2020-06-15 11:47] VITALS: BP 140/77
[2020-06-15] MEDS ORDERED: VANCOMYCIN PROTOCOL PER PHARMACY IV SCH (13:45)
[2020-06-15] MEDS ORDERED: COMPOUND IV REFRIGERATED 1 EACH IVSOLN MISC PRN (14:45)
[2020-06-15] MEDS ORDERED: VANCOMYCIN 2 GM in SODIUM CHLORIDE 0.9% 500ML 500 ML IV ONE (15:00)
[2020-06-15 15:25] VITALS: BP 112/68
[2020-06-15] MEDS: CEFEPIME HCL 1 GM VIAL IVP SCH ×2 (17:00→21:38)
[2020-06-15] MEDS: ROSUVASTATIN CALCIUM 20 MG PO SCH (20:04)
[2020-06-15 20:20] VITALS: BP 119/70
[2020-06-15] MEDS: LEVOTHYROXINE 125 MCG TABLET PO SCH (21:38)
[2020-06-15] MEDS: TAMSULOSIN HCL 0.4 MG CAP.ER.24H PO SCH (21:39)
[2020-06-15 23:13] VITALS: BP 127/69
[2020-06-16] VITALS (19 sets, daily range): BP systolic 127–156; BP diastolic 62–81
[2020-06-16] MEDS: VANCOMYCIN 750MG + NS 250 ML IV SCH ×8 (00:17→23:23)
[2020-06-16] MEDS: INSULIN HUMULIN R 100 UNIT/ML 3ML SQ SCH ×4 (05:11→23:02)
[2020-06-16] MEDS: CEFEPIME HCL 1 GM VIAL IVP SCH ×3 (06:30→22:51)
[2020-06-16] MEDS: ENOXAPARIN SODIUM 30 MG/0.3 ML SQ SCH (09:00)
[2020-06-16] MEDS: POLYETHYLENE GLYCOL 3350 17 GM POWD.PACK PO SCH ×2 (09:00→22:00)
[2020-06-16] MEDS: FAMOTIDINE 20MG TAB 20 MG TAB PO SCH ×2 (10:51→22:51)
[2020-06-16] MEDS: FUROSEMIDE 20 MG TABLET PO SCH ×2 (10:51→17:00)
[2020-06-16] MEDS: METOPROLOL TARTRATE 25 MG TAB PO SCH ×2 (10:51→22:51)
[2020-06-16] MEDS: ASPIRIN 81MG TAB.CHEW PO SCH (10:51)
[2020-06-16] MEDS: ATORVASTATIN CALCIUM 40 MG TABLET PO SCH (10:52)
[2020-06-16] MEDS ORDERED: SODIUM BICARB 50MEQ 50ML VIAL 50 ML ONE (15:22)
[2020-06-16] MEDS ORDERED: NITROGLYCERIN 2 MG/VIAL VIAL IV ONE (15:22)
[2020-06-16] MEDS ORDERED: HEPARIN SODIUM 1000UNIT/ML 10ML VIAL ONE (15:22)
[2020-06-16] MEDS ORDERED: IODIXANOL 320 MG/ML 100 ML VIAL ONE (15:22)
[2020-06-16] MEDS ORDERED: MIDAZOLAM HCL 1 MG/ML 2ML VIAL ONE (15:23)
[2020-06-16] MEDS ORDERED: FENTANYL CITRATE PF 50 MCG/1 ML 2ML VIAL ONE ×2 (15:23→19:20)
[2020-06-16] MEDS ORDERED: LIDOCAINE HCL 2% 20ML ONE (15:23)
--- NOTE | 2020-06-16 16:24 | NUR ---
RD NOTIFICATION Pt admitted for CABG X3 RD initial assessment due to LOS X 10 days Pt is currently NPO Previous diet was of 30 gm CC with a range of 50-100% of PO intake As per EMR and RN, pt is pending angiogram, and possible great toe amputation due to osteomyelitis and cellulitis. RD RECOMMENDATION: When medically feasible, consider a 75 gm CC diet with a general heart healthy modifier Monitor PO intake. Pt at higher protein needs Consider ProMod 60 ml QD- monitor tolerance Consider Glucerna BID if PO intake <50% RD will continue to follow pt's status Contact as nutritional concerns arise LABS: WBC 11.9, K 4.5, NA 136, BUN 11, CREAT 0.8, GFR 103, BG 186, A1C 8.7, TOT CA 8.8, PHOS 2.4, ALB 2.1, TOT PRO 5.5, Addendum: 06/16/20 at [address] Amended: Links added.
[2020-06-16] MEDS: SODIUM CHLORIDE 0.9% 1000ML 1,000 ML IV SCH ×2 (17:30→20:45)
[2020-06-16] MEDS ORDERED: LIDOCAINE HCL 1% 20 ML VIAL ONE (18:56)
[2020-06-16] MEDS ORDERED: BUPIVACAINE/PF 0.5% 30ML VIAL ONE (18:56)
[2020-06-16] MEDS ORDERED: PROPOFOL 10 MG/ML 20ML VIAL IV ONE (19:16)
[2020-06-16] MEDS ORDERED: OXYTOCIN 10 USP UNITS/ML ONE (19:16)
[2020-06-16] MEDS: ROSUVASTATIN CALCIUM 20 MG PO SCH (21:00)
[2020-06-16] MEDS: TAMSULOSIN HCL 0.4 MG CAP.ER.24H PO SCH (22:51)
[2020-06-16] MEDS: LEVOTHYROXINE 125 MCG TABLET PO SCH (22:51)
[2020-06-17] VITALS (7 sets, daily range): BP systolic 100–151; BP diastolic 52–81
[2020-06-17] MEDS: INSULIN HUMULIN R 100 UNIT/ML 3ML SQ SCH ×4 (06:33→19:54)
[2020-06-17] MEDS: CEFEPIME HCL 1 GM VIAL IVP SCH ×3 (06:37→20:47)
[2020-06-17] MEDS: VANCOMYCIN 750MG + NS 250 ML IV SCH ×2 (06:38)
[2020-06-17 09:54] LABS: CREATININE 0.8 mg/dL (0.5-1.5)
[2020-06-17] MEDS: FUROSEMIDE 20 MG TABLET PO SCH ×2 (10:17→17:36)
[2020-06-17] MEDS: METOPROLOL TARTRATE 25 MG TAB PO SCH ×2 (10:18→20:48)
[2020-06-17] MEDS: FAMOTIDINE 20MG TAB 20 MG TAB PO SCH ×2 (10:18→20:48)
[2020-06-17] MEDS: ASPIRIN 81MG TAB.CHEW PO SCH (10:18)
[2020-06-17] MEDS: POLYETHYLENE GLYCOL 3350 17 GM POWD.PACK PO SCH ×2 (10:18→20:55)
[2020-06-17] MEDS: ATORVASTATIN CALCIUM 40 MG TABLET PO SCH (10:18)
[2020-06-17] MEDS: ENOXAPARIN SODIUM 30 MG/0.3 ML SQ SCH (10:19)
[2020-06-17] MEDS: VANCOMYCIN 1GM+NS 250ML 250 ML IV SCH ×2 (14:23→20:56)
[2020-06-17] MEDS: TAMSULOSIN HCL 0.4 MG CAP.ER.24H PO SCH (20:47)
[2020-06-17] MEDS: LEVOTHYROXINE 125 MCG TABLET PO SCH (20:48)
[2020-06-17] MEDS: ROSUVASTATIN CALCIUM 20 MG PO SCH (20:48)
[2020-06-18 03:44] VITALS: BP 135/59
[2020-06-18] MEDS: CEFEPIME HCL 1 GM VIAL IVP SCH ×3 (04:45→21:54)
[2020-06-18] MEDS: VANCOMYCIN 1GM+NS 250ML 250 ML IV SCH ×3 (04:45→21:54)
[2020-06-18] MEDS: INSULIN HUMULIN R 100 UNIT/ML 3ML SQ SCH ×4 (05:43→21:53)
[2020-06-18 07:56] VITALS: BP 100/61
[2020-06-18] MEDS: POLYETHYLENE GLYCOL 3350 17 GM POWD.PACK PO SCH (09:00)
[2020-06-18] MEDS: FUROSEMIDE 20 MG TABLET PO SCH ×2 (09:35→17:28)
[2020-06-18] MEDS: ATORVASTATIN CALCIUM 40 MG TABLET PO SCH (09:35)
[2020-06-18] MEDS: ASPIRIN 81MG TAB.CHEW PO SCH (09:36)
[2020-06-18] MEDS: FAMOTIDINE 20MG TAB 20 MG TAB PO SCH ×2 (09:36→21:35)
[2020-06-18] MEDS: METOPROLOL TARTRATE 25 MG TAB PO SCH (09:36)
[2020-06-18] MEDS: ENOXAPARIN SODIUM 30 MG/0.3 ML SQ SCH (09:37)
[2020-06-18 11:51] VITALS: BP 96/56
[2020-06-18 16:00] VITALS: BP 100/59
[2020-06-18 20:00] VITALS: BP 101/62
[2020-06-18] MEDS: ROSUVASTATIN CALCIUM 20 MG PO SCH (21:00)
[2020-06-18] MEDS: LEVOTHYROXINE 125 MCG TABLET PO SCH (21:35)
[2020-06-18] MEDS: TAMSULOSIN HCL 0.4 MG CAP.ER.24H PO SCH (21:35)
[2020-06-19] VITALS: BP 120/65
[2020-06-19] MEDS: METOPROLOL TARTRATE 25 MG TAB PO SCH ×3 (00:07→21:10)
[2020-06-19 04:00] VITALS: BP 117/64
[2020-06-19] MEDS: CEFEPIME HCL 1 GM VIAL IVP SCH (05:59)
[2020-06-19] MEDS: INSULIN HUMULIN R 100 UNIT/ML 3ML SQ SCH ×4 (06:49→21:11)
[2020-06-19 07:00] VITALS: BP 115/69
[2020-06-19] MEDS: VANCOMYCIN 1GM+NS 250ML 250 ML IV SCH (07:05)
[2020-06-19] MEDS: FUROSEMIDE 20 MG TABLET PO SCH ×2 (08:02→17:34)
[2020-06-19] MEDS: ENOXAPARIN SODIUM 30 MG/0.3 ML SQ SCH (08:03)
[2020-06-19] MEDS: FAMOTIDINE 20MG TAB 20 MG TAB PO SCH ×2 (08:03→21:09)
[2020-06-19] MEDS: ATORVASTATIN CALCIUM 40 MG TABLET PO SCH (08:03)
[2020-06-19] MEDS: ASPIRIN 81MG TAB.CHEW PO SCH (08:03)
[2020-06-19] MEDS: POLYETHYLENE GLYCOL 3350 17 GM POWD.PACK PO SCH (08:04)
[2020-06-19] MEDS: ACETAMINOPHEN 325 MG TAB PO PRN (08:04)
[2020-06-19 11:00] VITALS: BP 129/77
[2020-06-19] MEDS ORDERED: CEFUROXIME AXETIL 250 MG TABLET PO SCH (12:00)
--- NOTE | 2020-06-19 12:00 | NUR ---
CM Note: [facility] pending approval CM met with pt and spouse in room, discussed dc plans and Dr Rodriguez's recs for left foot dressing changes w/HH, pt and spouse agreeable, ERIC signed for #1 [facility] and [facility]2 [facility]. Faxed order, clinicals, PT to [facility], confirmation received. Spoke to Camila made aware of referral, will check pt's benefits. Pending approval. Primary nurse Melissa ANDREWS aware. CM to continue to follow up.
[2020-06-19] MEDS: CEFUROXIME AXETIL 250 MG TABLET PO SCH ×2 (12:45→21:09)
[2020-06-19] MEDS ORDERED: FURO20TA6 PO (15:49)
[2020-06-19] MEDS ORDERED: METO25 PO (15:49)
[2020-06-19 16:00] VITALS: BP 112/59
--- NOTE | 2020-06-19 16:00 | NUR ---
CM Note: [facility] only offering Hosp[facility] at this time; pending approval for [facility] CM spoke to [facility], verbalized unable to take pt as they no longer have HH availability, only offering hospice at this time. Pt updated, informed will send to [facility], pt agreeable, signed ERIC for [facility]. Faxed order and clinicals to [facility], confirmation received. Pt pending approval and acceptance. Primary nurse Melissa RN updated. CM to continue to follow up.
[2020-06-19 20:00] VITALS: BP 107/63
[2020-06-19] MEDS: ROSUVASTATIN CALCIUM 20 MG PO SCH (21:00)
[2020-06-19] MEDS: TAMSULOSIN HCL 0.4 MG CAP.ER.24H PO SCH (21:09)
[2020-06-19] MEDS: LEVOTHYROXINE 125 MCG TABLET PO SCH (21:10)
[2020-06-20] VITALS (8 sets, daily range): BP systolic 89–130; BP diastolic 54–72
[2020-06-20] MEDS: INSULIN HUMULIN R 100 UNIT/ML 3ML SQ SCH ×4 (06:27→20:40)
[2020-06-20] MEDS: ATORVASTATIN CALCIUM 40 MG TABLET PO SCH (08:48)
[2020-06-20] MEDS: ASPIRIN 81MG TAB.CHEW PO SCH (08:49)
[2020-06-20] MEDS: FUROSEMIDE 20 MG TABLET PO SCH ×2 (08:49→18:13)
[2020-06-20] MEDS: CEFUROXIME AXETIL 250 MG TABLET PO SCH (08:49)
[2020-06-20] MEDS: FAMOTIDINE 20MG TAB 20 MG TAB PO SCH ×2 (08:49→20:39)
[2020-06-20] MEDS: METOPROLOL TARTRATE 25 MG TAB PO SCH ×2 (08:50→20:39)
[2020-06-20] MEDS: POLYETHYLENE GLYCOL 3350 17 GM POWD.PACK PO SCH (08:50)
[2020-06-20] MEDS: ENOXAPARIN SODIUM 30 MG/0.3 ML SQ SCH (08:51)
--- NOTE | 2020-06-20 11:00 | NUR ---
CM Note: [facility] approval CM spoke to Jayne ocampo/[facility] pt has approval, verbalized pt met deductable but has a $24.00 copay, already spoke to pt and agreeble to pay copay. Primary nurse Alistair ANDREWS aware. CM to continue to follow up.
[2020-06-20] MEDS: LEVOFLOXACIN 500 MG TABLET PO SCH (12:13)
--- NOTE | 2020-06-20 12:56 | NUR ---
RD FOLLOW UP Pt is currently on a 75 gm CC diet with a PO consumption of 75-100% Pt is s/p left great toe amputation due to osteomyelitis. Pt's BG levels range from 197-247 since 06/19/20. As per EMR pt is ambulating with surgical shoe. As per EMR, [facility] approval RD RECOMMENDATION: Monitor BG levels, pt may benefit from 60 gm CC diet ProMod 60 ml QD - assess tolerance. Monitor PO intake RD will continue to follow Contact dietary as nutritional concerns arise LABS: BG 247, NA 135, K 4.0, ALB 2.1, TOT PRO 5.5, A1C 8.2 Addendum: 06/20/20 at [address] Amended: Links added.
--- NOTE | 2020-06-20 12:58 | NUR ---
CM Note: [facility] not in network after all, [facility] vs [facility] pending approval CM received call from Jayne ocampo/[facility], verbalized their billing department checked and said they are not in network after all and pt will be under out of network and has a larger copay. Jayne verbalized she called pt and updated, pt unable to pay larger copay and does not want to use out of network company, prefers in network. Pt updated, CM will try to find other in network company . Made aware nurse will be teaching pt and family dressing changes in case CM unable to find any [facility] that will accept. Primary nurse Alistair ANDREWS aware. Will tech pt and family dressing changes. CM faxed order and clinicals to [facility] and [facility] confirmation received. Spoke to Lina ocampo/[facility] aware dcp today, will check benefit. Spoke to [facility] rep, aware dcp today, will check benefits. Will call CM back once able to verify. Pt pending approval for [facility] vs [facility] . Primary nurse Alistair ANDREWS aware. CM to continue to follow up.
--- NOTE | 2020-06-20 14:30 | NUR ---
CM Note: Dr Rodriguez pending to response CM called Dr Rodriguez this morning, no answer, left secured text w/MD regarding CM difficulty finding [facility]. Pending to agree if pt will be able to dc home w/o HH, for pt to f/u at MD's [facility], and nurse to teach pt and family dressing changes in between. Pending Dr Rodriguez response. Primary nurse Alistair ANDREWS aware. CM to continue to follow up.
--- NOTE | 2020-06-20 15:34 | NUR ---
DR MCCRAY FOLLOW UP CALLED OFFICE [phone] FOR FOLLOW UP APPOINTMENT, REDIRECTED TO [phone] [facility] IS [facility], LEFT MESSAGE ON ANSWERING MACHINE FOR CALL BACK TO SCHEDULE FOLLOW UP APPOINTMENT.
[2020-06-20] MEDS: ROSUVASTATIN CALCIUM 20 MG PO SCH (19:42)
[2020-06-20] MEDS: TAMSULOSIN HCL 0.4 MG CAP.ER.24H PO SCH (20:39)
[2020-06-20] MEDS: LEVOTHYROXINE 125 MCG TABLET PO SCH (20:39)
[2020-06-21 04:24] VITALS: BP 128/77
[2020-06-21] MEDS: INSULIN HUMULIN R 100 UNIT/ML 3ML SQ SCH ×2 (05:59→12:18)
[2020-06-21] MEDS: POLYETHYLENE GLYCOL 3350 17 GM POWD.PACK PO SCH (09:00)
[2020-06-21 09:14] VITALS: BP 134/67
[2020-06-21] MEDS: FAMOTIDINE 20MG TAB 20 MG TAB PO SCH (09:56)
[2020-06-21] MEDS: METOPROLOL TARTRATE 25 MG TAB PO SCH (09:57)
[2020-06-21] MEDS: LEVOFLOXACIN 500 MG TABLET PO SCH (09:57)
[2020-06-21] MEDS: FUROSEMIDE 20 MG TABLET PO SCH (09:57)
[2020-06-21] MEDS: ASPIRIN 81MG TAB.CHEW PO SCH (09:57)
[2020-06-21] MEDS: ATORVASTATIN CALCIUM 40 MG TABLET PO SCH (09:57)
[2020-06-21] MEDS: ENOXAPARIN SODIUM 30 MG/0.3 ML SQ SCH (09:58)
--- NOTE | 2020-06-21 11:14 | NUR ---
CM Note: DCP to home CM spoke to Dr Jennifer MD made aware CM having difficulty finding in network HH for PT, made aware pt has [employer] insurance. As per OK to dc home, cancel HH, nurse to teach pt and family dressing changes, f/u office this week. Order entered. Primary nurse Dusty ANDREWS aware, to teach family and pt dressing changes, to give pt some supplies to start pt with. Pt safe to DC home via private car today. CM to continue to follow up.
[2020-06-21 12:19] VITALS: BP 131/71
--- NOTE | 2020-06-21 17:00 | NUR ---
PT AWAKE, ALERT, AND ORIENTED. DC HOME INSTRUCTIONS GIVEN TO PT AND SPOUSE, AWARE ELECTRONIC SCRIPT SENT TO PHARMACY, WRITTEN PRESCRIPTION FOR LEVAQUIN AND JARDANCE GIVEN TO PT TO TAKE TO PHARMACY. WOUND CARE INSTRUCTIONS GIVEN TO PT INSTRUCTED PER DR MCCRAY. ALL QUESTIONS AND CONCERNS ANSWERED. PT MADE AWARE TO DIAL 911 OR RETURN TO ER FOR EMERGENCIES; MADE AWARE TO CALL PCP FOR QUESTIONS OR CONCERNS. APPOINTMENTS MADE FOR F/U OUTPATIENT
--- NOTE | 2020-06-22 11:36 | NUR ---
FOLLOW UP CALL T/C PLACED TO [phone], NO RESPONSE, LEFT MESSAGE. CALL PLACED TO AT [phone]. SAID THEY OBTAIN THE PRESCRIPTIONS AND HAVE STARTED TAKING THEM. STATES "HE IS DOING REALLY GOOD."
== END 2020-06-21 18:20 | disposition home or self-care (01) | DRG 235 ==
LOC: DAHIP 06-06 06:10 → EDSTATUS 06-06 11:00 → 2CH 06-06 11:14 → 4DH 06-10 16:57
PROVIDERS: ADMIT Thoracic Surgery (Cardiothoracic Vascular Surgery); ATTEND Thoracic Surgery (Cardiothoracic Vascular Surgery)
PROC: 06BQ4ZZ Excision of Left Saphenous Vein, Percutaneous Endoscopic Approach (ICD-10-PCS; 2020-06-06)
PROC: 05HY33Z Insertion of Infusion Device into Upper Vein, Percutaneous Approach (ICD-10-PCS; 2020-06-06)
PROC: 02100Z9 Bypass Coronary Artery, One Artery from Left Internal Mammary, Open Approach (ICD-10-PCS; principal; 2020-06-06 10:05)
PROC: 021109W Bypass Coronary Artery, Two Arteries from Aorta with Autologous Venous Tissue, Open Approach (ICD-10-PCS; 2020-06-06 10:05)
PROC: 0WCC0ZZ Extirpation of Matter from Mediastinum, Open Approach (ICD-10-PCS; 2020-06-07)
PROC: 0W9B30Z Drainage of Left Pleural Cavity with Drainage Device, Percutaneous Approach (ICD-10-PCS; 2020-06-07)
PROC: 0BJQ3ZZ Inspection of Pleura, Percutaneous Approach (ICD-10-PCS; 2020-06-07)
PROC: 5A1935Z Respiratory Ventilation, Less than 24 Consecutive Hours (ICD-10-PCS; 2020-06-07)
PROC: 30233N1 Transfusion of Nonautologous Red Blood Cells into Peripheral Vein, Percutaneous Approach (ICD-10-PCS; 2020-06-07)
PROC: 0T9B70Z Drainage of Bladder with Drainage Device, Via Natural or Artificial Opening (ICD-10-PCS; 2020-06-13)
PROC: 0Y6Q0Z1 Detachment at Left 1st Toe, High, Open Approach (ICD-10-PCS; 2020-06-16)
PROC: B41GYZZ Fluoroscopy of Left Lower Extremity Arteries using Other Contrast (ICD-10-PCS; 2020-06-16)
PROC: B41FYZZ Fluoroscopy of Right Lower Extremity Arteries using Other Contrast (ICD-10-PCS; 2020-06-16)
DX: I25.10 Atherosclerotic heart disease of native coronary artery without angina pectoris (principal); J18.9 Pneumonia, unspecified organism; J90 Pleural effusion, not elsewhere classified; J93.9 Pneumothorax, unspecified; D62 Acute posthemorrhagic anemia; J94.2 Hemothorax; M86.8X7 Other osteomyelitis, ankle and foot; J98.11 Atelectasis; E11.52 Type 2 diabetes mellitus with diabetic peripheral angiopathy with gangrene; I10 Essential (primary) hypertension; R33.8 Other retention of urine; E87.70 Fluid overload, unspecified; M79.81 Nontraumatic hematoma of soft tissue; E87.6 Hypokalemia; L84 Corns and callosities; E11.621 Type 2 diabetes mellitus with foot ulcer; E11.42 Type 2 diabetes mellitus with diabetic polyneuropathy; E11.69 Type 2 diabetes mellitus with other specified complication; Z53.8 Procedure and treatment not carried out for other reasons; N40.1 Benign prostatic hyperplasia with lower urinary tract symptoms; R31.0 Gross hematuria; L97.529 Non-pressure chronic ulcer of other part of left foot with unspecified severity; L03.032 Cellulitis of left toe; I95.1 Orthostatic hypotension; I25.5 Ischemic cardiomyopathy; E78.00 Pure hypercholesterolemia, unspecified; E78.5 Hyperlipidemia, unspecified; E03.9 Hypothyroidism, unspecified; R23.8 Other skin changes; R53.81 Other malaise; E66.01 Morbid (severe) obesity due to excess calories; Z20.828 Contact with and (suspected) exposure to other viral communicable diseases; Z87.891 Personal history of nicotine dependence; Z79.899 Other long term (current) drug therapy; Z79.82 Long term (current) use of aspirin; Z95.5 Presence of coronary angioplasty implant and graft; Z68.31 Body mass index [BMI] 31.0-31.9, adult; Z90.49 Acquired absence of other specified parts of digestive tract
CPT/HCPCS: 36247; 36415; 36430; 71045; 71046; 71250; 73630; 73718; 75716; 80048; 80053; 80061; 80202; 82330; 82435; 82803; 82947; 82948; 83036; 83605; 83735; 83880; 84100; 84132; 84295; 85018; 85025; 85027; 85347; 85384; 85610; 85730; 86850; 86900; 86901; 86923; 87070; 87076; 87077; 87186; 87205; 93005; 93880; 93925; 94002; 94003; 94010; 94150; 97039; 99156; 99157; A4344; A4606; A7048; C1893; C1894; G0378; J0171; J0330; J0610; J0690; J0692; J0697; J1100; J1644; J1650; J1815; J1940; J2001; J2175; J2250; J2405; J2440; J2590; J2704; J2710; J2720; J3010; J3370; J3475; J3480; J3490; J7030; J7040; J7050; J7060; P9016; P9045; Q9967; U0003

== ENCOUNTER → 2021-06-29 | Outpatient (CLI) | payer BC ==
[~2021-06-29] MED LIST changes: +AEC81 PO; -FURO20TA4 PO; +FURO20TA6 PO; +METO25 PO
== END | disposition home or self-care (01) ==
LOC: OIH 14:34
PROVIDERS: ATTEND Internal Medicine Cardiovascular Disease
DX: I25.810 Atherosclerosis of coronary artery bypass graft(s) without angina pectoris (principal); I10 Essential (primary) hypertension
CPT/HCPCS: 93306; 93356

== ENCOUNTER → 2023-08-25 | Outpatient (CLI) | payer BC, OTHER | END | disposition home or self-care (01) | LOC: SHCH 12:33 | PROVIDERS: ATTEND Internal Medicine Cardiovascular Disease | DX: I25.810 Atherosclerosis of coronary artery bypass graft(s) without angina pectoris (principal); I10 Essential (primary) hypertension | CPT/HCPCS: 93306 ==

== ENCOUNTER → 2023-08-28 | Outpatient (CLI) | payer BC, OTHER ==
[2023-08-28 16:16] LABS: BASOPHILS # (AUTO) 0.04 K/uL (0.00-0.20); BASOPHILS % (AUTO) 0.4 % (0.0-5.0); EOSINOPHILS # (AUTO) 0.46 K/uL (0.00-0.70); HEMATOCRIT 33.9 % (42-54); IMMATURE GRANULOCYTE ABSOLUTE 0.04 K/uL (0-1); LYMPHOCYTES # (AUTO) 1.5 K/uL (1.0-4.8); LYMPHOCYTES % (AUTO) 16.3 % (21.0-51.0); MEAN CORPUSCULAR HEMOGLOBIN 27.3 pg (27.0-33.0); MEAN CORPUSCULAR HGB CONC 32.2 g/dL (32.0-36.0); MEAN CORPUSCULAR VOLUME 84.8 fL (79-99); MONOCYTES # (AUTO) 0.8 K/uL (0.1-1.0); MONOCYTES % (AUTO) 8.2 % (3.0-13.0); NEUTROPHILS # (AUTO) 6.4 K/uL (1.8-7.7); NEUTROPHILS % (AUTO) 69.7 % (40.0-77.0); PLATELET COUNT (AUTO) 315 K/uL (130-400); RED CELL DISTRIBUTION WIDTH 18.2 % (11.0-15.5); WHITE BLOOD COUNT (AUTO) 9.1 K/uL (4.8-10.8)
[2023-08-28 16:47] LABS: ALBUMIN 3.7 g/dL (3.5-5.0); BILIRUBIN,TOTAL 0.2 mg/dL (0.2-1.0); CREATININE 1.8 mg/dL (0.5-1.5); MAGNESIUM 1.3 mg/dL (1.80-2.40); POTASSIUM 4.7 mmol/L (3.5-5.1); T4 (THYROXINE) 5.2 ug/dL (4.7-13.3); THYROID STIMULATING HORMONE 5.22 uIU/mL (0.36-3.74); TOTAL PROTEIN, SERUM 7.5 g/dL (6.0-8.3)
== END | disposition home or self-care (01) ==
LOC: LAB 13:37
PROVIDERS: ATTEND Internal Medicine Cardiovascular Disease
DX: I10 Essential (primary) hypertension (principal)
CPT/HCPCS: 36415; 80053; 82533; 83735; 84436; 84443; 85025

== ENCOUNTER → 2024-01-30 | Outpatient (CLI) | payer BC, OTHER ==
[2024-01-30 15:48] LABS: CREATININE 1.6 mg/dL (0.5-1.3); MAGNESIUM 1.5 mg/dL (1.80-2.40); POTASSIUM 4.7 mmol/L (3.5-5.1)
== END | disposition home or self-care (01) ==
LOC: LAB 11:46
PROVIDERS: ATTEND Physician Assistant
DX: I10 Essential (primary) hypertension (principal)
CPT/HCPCS: 36415; 80048; 83735